=== PATIENT | female | born 1970 | race Caucasian/White ===

== ENCOUNTER → 2017-01-29 | Outpatient (CLI) | payer MEDICAID ==
--- NOTE | 2017-01-29 09:12 | WWHP ---
[facility] - HISTORY AND PHYSICAL CHIEF COMPLAINT: The patient is here for her routine gynecologic exam. HPI: This is a 46-year-old, G2, P2, with a LMP of 01/19/2017. The patient states it has been about 2 years since her last pelvic exam. Her partner is status post vasectomy. She states her periods were regular every month, lasting 5 days with average flow up until 1 year ago. She states they since have been about every 25 days and can vary in flow. She can go from heavy to light to heavy again. She has always had fairly crampy periods and this has not changed. On her heavy days, she can have to change her protection every 1-1/2 to 2 hours. She did have 1 episode where she did soak through her protection while at work. She has been experiencing some hot flashes, especially at night, and this is been during the last year. She notices this more about 2 days before the period starts. PAST MEDICAL HISTORY: Unremarkable. MEDICATIONS: None. ALLERGIES: No known drug allergies. PAST SURGICAL HISTORY: Ureteral reflux surgery in 1974, umbilical hernia repair in 2003. PAST OB HISTORY: Two vaginal deliveries. 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 S SOCIAL HISTORY: She denies tobacco and drug use and has about 5 alcohol containing drinks per week. She is and has been with her boyfriend for 3 years and lives with him. 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 FAMILY HISTORY: Mother had lung cancer, breast cancer, and adrenal cancer. Paternal grandmother had colon cancer. Father had pulmonary hypertension. Several aunts and uncles have had heart disease. REVIEW OF SYSTEMS: She believes that she has gained about 10 pounds over the last year. She denies respiratory, cardiac or GI problems. PHYSICAL EXAM: Blood pressure 120/80, height 5 feet 5 inches, weight 188 pounds, temperature 97.0, pulse 88, BMI 31. This is a well-developed, well-nourished, white female, who is alert and oriented x3, in no acute distress. HEENT: Within normal limits. NECK: Supple without mass or thyromegaly. CHEST AND LUNGS: Clear to auscultation. HEART: Regular rate and rhythm. BREASTS: Without mass or discharge. Axillary exam is negative for adenopathy. BACK: Negative for CVA tenderness. ABDOMEN: Soft, nontender, without palpable masses. PELVIC EXAM: Normal external genitalia. Cervix appears multiparous with a benign- appearing nabothian cyst. There is no unusual discharge. There is no cervical motion tenderness. The uterus is mid position, nongravid size and nontender. There are no palpable adnexal masses or tenderness. RECTAL: Exam is negative for mass or tenderness and is negative for occult blood. EXTREMITIES: Nontender. IMPRESSION: 1. A 46-year-old female with normal gynecologic exam. 2. Mild hypermenorrhea. PLAN: 1. Pap smear was performed. 2. Self-breast examination was discussed. 3. Mammogram was done on 02/26/2016 and was benign. An order slip was given to the patient for screening mammogram in 1 month. 4. Patient will keep a menstrual calendar. 5. We have this discussed various options for her hypermenorrhea including meclofenamate sodium, oral contraception, and endometrial ablation. We will have a trial of meclofenamate sodium 100 mg t.i.d. p.r.n. for heavy menstrual flow up to 6 days per cycle. 6. If she is not noticing significant improvement we can discuss other options. 7. We have discussed weight control. I have stressed the importance of good nutrition, adequate fiber and regular exercise. 8. She will return in 1 year and p.r.n. MMPOWERL / MARKN: [id number] /
== END ==
LOC: WWCWWP 07:43
PROVIDERS: ATTEND Obstetrics & Gynecology
DX: Z01.419 Encounter for gynecological examination (general) (routine) without abnormal findings (principal)

== ENCOUNTER → 2017-03-14 | Outpatient (CLI) | payer MEDICAID ==
--- NOTE | 2017-03-18 09:43 | MM ---
Reason for exam: screening (asymptomatic). Last mammogram was performed 1 year and 1 month ago. History: Family history of breast cancer in mother at age 63 and breast cancer in maternal grandmother at age 58. Took hormonal contraceptives for 2 years beginning at age 25. Physical Findings: A clinical breast exam by your physician is recommended on an annual basis and results should be correlated with mammographic findings. MG 3D Screening Mammo W/Cad Bilateral CC and MLO view(s) were taken. Prior study comparison: February 26, 2016, bilateral MG 3d screening mammo w/cad. January 18, 2015, left breast MG 3d work up w/cad LT. The breast tissue is extremely dense which could obscure a lesion on mammography. There is no discrete abnormality. No significant changes when compared with prior studies. ASSESSMENT: Negative, BI-RAD 1 RECOMMENDATION: Routine screening mammogram of both breasts in 1 year.
== END | disposition home or self-care (01) ==
LOC: RADMAMWWP 12:31
PROVIDERS: ATTEND Obstetrics & Gynecology
DX: Z12.31 Encounter for screening mammogram for malignant neoplasm of breast (principal)
CPT/HCPCS: 77063; G0202

== ENCOUNTER → 2018-02-10 | Outpatient (CLI) | payer MEDICAID ==
[2018-02-10 11:45] VITALS: BP 128/69; PULSE 88; TEMP 96.5; BMI 30.4
--- NOTE | 2018-02-10 12:16 | P.HPOB ---
History of Present Illness H&P Date: 02/10/18 Chief Complaint: The patient is here for her routine gynecologic exam. This is a 47-year-old with an LMP of 02/02/2018. The patient's 's status post vasectomy. She did have a history of mild hypermenorrhea. She states her menses have been slightly variable in frequency, about every 24 to 28 days. They are now only lasting about 2 days and are not as heavy. She has been experiencing occasional hot flashes during the past year which are not severe. She did not use the meclofenamate sodium as prescribed last year for heavy menses. She is without gynecologic complaints. Review of Systems The patient has lost 5 pounds over the last year. She denies respiratory, cardiac, or G.I. problems. 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 History of Any Multi-Drug Resistant Organisms: None Reported Past Surgical History: Hernia Repair (Umbilical) Additional Past Surgical History / Comment(s): Ureteral reflux surgery of 1974. Past Psychological History: No Psychological Hx Reported Smoking Status: Never smoker Past Alcohol Use History: Occasional (3 or 4 per week) Past Drug Use History: None Reported - Past Family History Mother Family Medical History: Cancer (Lung, breast and adrenal cancer.) Additional Family Medical History / Comment(s): Gilbert's disease. Father Additional Family Medical History / Comment(s): Pulmonary hypertension. Paternal grandmother had colon cancer. Aunts and uncles have had heart disease. Medications and Allergies Home Medications Medication Instructions Recorded Confirmed Type No Known Home Medications 02/10/18 02/10/18 History Allergies Allergy/AdvReac Type Severity Reaction Status Date / Time No Known Allergies Allergy Unverified 02/10/18 11:45 Exam Vital Signs Temp Pulse BP 02/10/18 11:40 96.5 F L 88 128/69 Intake and Output 02/09/18 02/10/18 02/10/18 22:59 06:59 14:59 Other: Weight 83.007 kg Height 5'5", weight 183 pounds, BMI 30.5. This is a well-developed well-nourished white female who is alert and oriented times 3 in no acute distress. HEENT: Within normal limits. NECK: Supple without mass or thyromegaly. CHEST AND LUNGS: Clear to auscultation. HEART: Regular rate and rhythm. BREASTS: Are without mass or discharge. AXILLARY EXAM: Negative for adenopathy. BACK: Negative for CVA tenderness. ABDOMEN: Soft, nontender, without palpable masses. PELVIC EXAM: Normal external genitalia. Cervix and vagina appear normal. There is no unusual discharge. There is no evidence of prolapse. The uterus is midposition, nongravid size and nontender. There are no palpable adnexal masses or tenderness. RECTAL EXAM: negative for mass or tenderness and is negative for occult blood. EXTREMITIES: Nontender. IMPRESSION: 1. 47-year-old female whose is status post vasectomy, with normal gynecologic exam. 2. Improved hypermenorrhea without medication. PLAN: 1. Pap smear was deferred since she had a negative one last year. 2. Self breast awareness was discussed with the patient. 3. Screening mammogram will be due after 03/14/2018. The orders that was given to the patient for this. 4. Osteoporosis prevention was discussed. I have stressed the importance of adequate calcium, vitamin D and regular exercise. Recommended amounts of calcium and vitamin D were also discussed. 5. She will keep a menstrual calendar and call if menstrual problems. 6. She will return in one year.
== END | disposition home or self-care (01) ==
LOC: WWCWWP 11:17
PROVIDERS: ATTEND Obstetrics & Gynecology
DX: Z53.9 Procedure and treatment not carried out, unspecified reason (principal)

== ENCOUNTER → 2018-04-08 | Outpatient (CLI) | payer MEDICAID ==
--- NOTE | 2018-04-12 13:38 | MM ---
Reason for exam: screening (asymptomatic). Last mammogram was performed 1 year and 1 month ago. History: Family history of breast cancer in mother at age 63 and breast cancer in maternal grandmother at age 58. Took hormonal contraceptives for 2 years beginning at age 25. MG 3D Screening Mammo W/Cad Bilateral CC and MLO view(s) were taken. Prior study comparison: March 14, 2017, bilateral MG 3d screening mammo w/cad. February 26, 2016, bilateral MG 3d screening mammo w/cad. The breast tissue is heterogeneously dense. This may lower the sensitivity of mammography. There are benign-appearing left breast punctate calcifications. No suspicious abnormality. No significant changes when compared with prior studies. ASSESSMENT: Benign, BI-RAD 2 RECOMMENDATION: Routine screening mammogram of both breasts in 1 year.
== END | disposition home or self-care (01) ==
LOC: RADMAMWWP 10:07
PROVIDERS: ATTEND Obstetrics & Gynecology
DX: Z12.31 Encounter for screening mammogram for malignant neoplasm of breast (principal)
CPT/HCPCS: 77063; 77067

== ENCOUNTER → 2019-04-27 | Outpatient (CLI) | payer MEDICAID ==
[2019-04-27 15:50] VITALS: BP 124/85; PULSE 82; RESP 18; TEMP 97.8
--- NOTE | 2019-04-27 16:31 | P.HPOB ---
History of Present Illness H&P Date: 04/27/19 Chief Complaint: The patient is here for her routine gynecologic exam. This is a 48-year-old with an LMP of 04/15/2019. Patient states her menstrual periods are about every 25-30 days and can vary flow. She does experience occasional hot flashes especially the week before her menstrual flow. Her partner is status post vasectomy. Review of Systems The patient's weight has been stable over the last year. She denies respiratory, cardiac, or G.I. problems. She has been experiencing some anxiety but has not required any medications at this time. 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 History of Any Multi-Drug Resistant Organisms: None Reported Past Surgical History: Hernia Repair Additional Past Surgical History / Comment(s): Ureteral reflux surgery of 1974. Past Psychological History: Anxiety Additional Psychological History / Comment(s): Anxiety not requiring medication at this time. Smoking Status: Never smoker Past Alcohol Use History: Occasional (3 per week) Past Drug Use History: None Reported Additional History: She is and has been with her boyfriend since 2013 and lives with him. She works at [employer] in [employer] at [facility]. - Past Family History Mother Family Medical History: Cancer Additional Family Medical History / Comment(s): Gilbert's disease. Recurrent lung cancer. Also history of breast and adrenal colon cancer. Father Additional Family Medical History / Comment(s): Pulmonary hypertension. Paternal grandmother had colon cancer. Aunts and uncles have had heart disease. Medications and Allergies Home Medications Medication Instructions Recorded Confirmed Type No Known Home Medications 02/10/18 04/27/19 History Allergies Allergy/AdvReac Type Severity Reaction Status Date / Time No Known Allergies Allergy Unverified 04/27/19 15:50 Exam Vital Signs Temp Pulse Resp BP Pulse Ox 04/27/19 15:47 97.8 F 82 18 124/85 98 Intake and Output 04/27/19 04/27/19 04/27/19 06:59 14:59 22:59 Other: Weight 82.554 kg Height 5 feet 5.5 inches, weight 182 pounds, BMI 29.8. This is a well-developed well-nourished white female who is alert and oriented times 3 in no acute distress. HEENT: Within normal limits. NECK: Supple without mass or thyromegaly. CHEST AND LUNGS: Clear to auscultation. HEART: Regular rate and rhythm. BREASTS: Are without mass or discharge. There is a small mole measuring approximately 5 mm on the left area of the. The patient states this has been there for many years and has not changed. AXILLARY EXAM: Negative for adenopathy. BACK: Negative for CVA tenderness. ABDOMEN: Soft, nontender, without palpable masses. PELVIC EXAM: Normal external genitalia. Cervix and vagina appear normal. There is no unusual discharge. There is no evidence of prolapse. The uterus is midposition, nongravid size and nontender. There are no palpable adnexal masses or tenderness. RECTAL EXAM: negative for mass or tenderness and is negative for occult blood. EXTREMITIES: Nontender. IMPRESSION: 1. 48-year-old female with normal gynecologic exam with slight menstrual changes and occasional vasomotor symptoms. Probable early perimenopause. 2. The patient's partner is status post vasectomy. PLAN: 1. Pap smear was performed. 2. Self breast awareness was discussed with the patient. 3. Screening mammogram is due and the order slip was given to the patient for this. 4. Patient will keep a menstrual calendar on her phone and call she's having menstrual problems. 5. She was advised to return in one year for her annual well woman exam.
--- NOTE | 2019-05-04 17:42 | P.PN ---
Progress Note - Text Progress Note Date: 05/04/19 OUTPATIENT FOLLOW-UP NOTE TEST(S)/RESULTS: test results from 04/27/2019 include negative Pap smear and benign mammogram. METHOD OF NOTIFICATION: a message with these results was left on the patient's voice mail. PATIENT COMMENTS: DIAGNOSIS: negative Pap smear and benign mammogram. DISCUSSION: A shift in the vaginal princess was noted on the Pap smear suggestive of bacterial vaginosis. The patient was instructed to contact me at the [facility] and at that time I will ask her she's having any bacterial vaginosis symptoms and possibly treat. PLAN: the patient is to return in one year for her annual well woman exam.
--- NOTE | 2019-05-05 14:20 | P.PN ---
Progress Note - Text Progress Note Date: 05/05/19 The patient was called regarding the Pap smear showing a shift in the vaginal princess suggestive of bacterial vaginosis. She states she occasionally notices a slight odor at the end of her menstrual period and this is not new. She otherwise denies any symptoms of bacterial vaginosis. She was instructed to call if she develops unusual discharge or unusual vaginal odor.
== END | disposition home or self-care (01) ==
LOC: WWCWWP 15:31
PROVIDERS: ATTEND Obstetrics & Gynecology
DX: Z53.9 Procedure and treatment not carried out, unspecified reason (principal)

== ENCOUNTER → 2019-04-29 | Outpatient (CLI) | payer MEDICAID ==
--- NOTE | 2019-04-30 11:59 | MM ---
Reason for exam: screening (asymptomatic). Last mammogram was performed 1 year and 1 month ago. History: Family history of breast cancer in mother at age 63 and breast cancer in maternal grandmother at age 58. Took hormonal contraceptives for 2 years beginning at age 25. Physical Findings: A clinical breast exam by your physician is recommended on an annual basis and results should be correlated with mammographic findings. MG 3D Screening Mammo W/Cad Bilateral CC and MLO view(s) were taken. Prior study comparison: April 08, 2018, bilateral MG 3d screening mammo w/cad. March 14, 2017, bilateral MG 3d screening mammo w/cad. The breast tissue is heterogeneously dense. This may lower the sensitivity of mammography. Benign appearing few calcifications in the left breast. No suspicious abnormality. No significant changes when compared with prior studies. ASSESSMENT: Benign, BI-RAD 2 RECOMMENDATION: Routine screening mammogram of both breasts in 1 year.
== END | disposition home or self-care (01) ==
LOC: RADMAMWWP 11:32
PROVIDERS: ATTEND Obstetrics & Gynecology
DX: Z12.31 Encounter for screening mammogram for malignant neoplasm of breast (principal)
CPT/HCPCS: 77063; 77067

== ENCOUNTER → 2020-05-03 | Outpatient (CLI) | payer MEDICAID ==
[2020-05-03 10:23] VITALS: BP 107/74; PULSE 81; RESP 18; TEMP 98
--- NOTE | 2020-05-03 11:06 | P.HPOB ---
History of Present Illness H&P Date: 05/03/20 Chief Complaint: The patient is here for her routine gynecologic exam. This is a 49-year-old with an LMP of 04/23/2020. Her partner is status post vasectomy. Patient states her menstrual periods are about every 25-30 days. She does experience occasional hot flashes prior to her menstrual periods. She is without complaints. She is requesting screening blood tests since she has not been to her primary care physician for several years. Review of Systems The patient's weight has been stable over the last year. She denies respiratory, cardiac, or G.I. problems. Musculoskeletal: She has been experiencing some right shoulder problems and is seeing an orthopedic surgeon for this. This has improved with stretching exercises. Psych: She has been experiencing some mild anxiety since her mother's in 2019. She does not require medication for this. Past Medical History Past Medical History: No Reported History Additional Past Medical History / Comment(s): Right shoulder problems. 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 History of Any Multi-Drug Resistant Organisms: None Reported Past Surgical History: Hernia Repair Additional Past Surgical History / Comment(s): Ureteral reflux surgery of 1974. Past Psychological History: Anxiety Additional Psychological History / Comment(s): Anxiety not requiring medication at this time. Smoking Status: Never smoker Past Alcohol Use History: Occasional (3 per week) Past Drug Use History: None Reported Additional History: She is and has been with her boyfriend since 2013 and lives with him. She works at [employer] in [employer] at [employer]. - Past Family History Mother Family Medical History: Cancer Additional Family Medical History / Comment(s): Gilbert's disease. from Recurrent lung cancer. Also history of breast and adrenal colon cancer. Father Additional Family Medical History / Comment(s): Pulmonary hypertension. Paternal grandmother had colon cancer. Aunts and uncles have had heart disease. Medications and Allergies Home Medications Medication Instructions Recorded Confirmed Type Ascorbic Acid [Vitamin C] 500 mg PO DAILY 05/03/20 05/03/20 History Ibuprofen [Motrin] 600 mg PO Q8HR PRN 05/03/20 05/03/20 History Allergies Allergy/AdvReac Type Severity Reaction Status Date / Time No Known Allergies Allergy Unverified 02/17/21 10:16 Exam Vital Signs Temp Pulse Resp BP Pulse Ox 05/03/20 10:20 98.0 F 81 18 107/74 100 Intake and Output 05/02/20 05/03/20 05/03/20 22:59 06:59 14:59 Other: Weight 82.1 kg Height 5 feet 5-1/2 inches, weight 181 pounds, BMI 29.7. This is a well-developed well-nourished white female who is alert and oriented times 3 in no acute distress. HEENT: Within normal limits. NECK: Supple without mass or thyromegaly. CHEST AND LUNGS: Clear to auscultation. HEART: Regular rate and rhythm. BREASTS: Are without mass or discharge. AXILLARY EXAM: Negative for adenopathy. BACK: Negative for CVA tenderness. ABDOMEN: Soft, nontender, without palpable masses. PELVIC EXAM: Normal external genitalia. Cervix and vagina appear normal. There is no unusual discharge. There is no evidence of prolapse. The uterus is midposition, nongravid size and nontender. There are no palpable adnexal masses or tenderness. RECTAL EXAM: Rectal exam is negative for mass or tenderness and is negative for occult blood. EXTREMITIES: Nontender. IMPRESSION: 1. 49-year-old perimenopausal female whose partner is status post vasectomy with normal gynecologic exam. PLAN: 1. Pap smear was deferred since she had a negative Pap smear on 05/05/2019. 2. Self breast awareness was discussed with the patient. 3. Screening mammogram will be due in the near future and the order slip was given to the patient for this. 4. Osteoporosis prevention was discussed. I have stressed the importance of adequate calcium, vitamin D and regular exercise. Recommended amounts of calcium and vitamin D were also discussed. 5. I have recommended that she look into having a screening colonoscopy at the age of 50. 6. She is requesting screening blood work since she has not been to her PCP in several years. Blood work will include comprehensive chem panel, CBC, and fasting lipid profile. The order slip was given to the patient for this. She understands that if there are abnormal findings with the blood work, I will recommend that she reestablish with her primary care physician for follow-up. 7. She was advised to return in one year for her annual well woman exam.
--- NOTE | 2020-05-09 15:52 | P.PN ---
Progress Note - Text Progress Note Date: 05/09/20 OUTPATIENT FOLLOW-UP NOTE TEST(S)/RESULTS: Blood test results done on 05/08/2020 include normal comprehensive chem panel, fasting lipid profile with total cholesterol of 201, normal HDL, LDL, triglycerides and cholesterol/HDL ratio. CBC showed slightly elevated MCV and MCH. The rest was normal. METHOD OF NOTIFICATION: These results were reviewed with the patient in person. PATIENT COMMENTS: He states she was once told she probably should take a vitamin B12 supplement. She has not been doing this. DIAGNOSIS: Mildly elevated total cholesterol with good lipid profile breakdown. Mildly increased MCV and MCH with normal hemoglobin and RBC count. DISCUSSION: I have recommended that she establish with a primary care physician and she can do future blood screening tests with that person. I have recommended that she take a vitamin B12 supplement or a multivitamin with vitamin B12. She can then repeat the CBC at her convenience and if still elevated, she can follow up with a primary care physician. PLAN: As above.
== END | disposition home or self-care (01) ==
LOC: WWCWWP 09:58
PROVIDERS: ATTEND Obstetrics & Gynecology
DX: Z53.9 Procedure and treatment not carried out, unspecified reason (principal)

== ENCOUNTER → 2020-05-08 | Outpatient (CLI) | payer MEDICAID ==
[2020-05-08 15:14] LABS: HCT 42.3 % (37.2-46.3); HGB 13.7 g/dL (12.0-15.0); MCH 32.2 pg (27.0-32.0); MCHC 32.4 g/dL (32.0-37.0); MCV 99.3 fL (80.0-97.0); Mean Platelet Volume 11.1 fL (9.5-12.2); Platelet Count 242 X 10*3/uL (140-440); RBC 4.26 X 10*6/uL (4.10-5.20); RDW 12.8 % (11.5-14.5); WBC 4.98 X 10*3/uL (4.50-10.00)
[2020-05-08 15:39] LABS: African American GFR (CKD) 100.3 (60.0-200.0); Albumin 4.1 g/dL (3.80-4.90); Albumin/Globulin Ratio 1.64 (1.60-3.17); Anion Gap 7.3 mmol/L (4.00-12.00); BUN/Creat Ratio 17.5 Ratio (12.00-20.00); Carbon Dioxide 25.7 mmol/L (21.6-31.8); Chol/HDL Ratio 3.41; Globulin 2.5 g/dL (1.6-3.3); Non-African American GFR(CKD) 86.6 (60.0-200.0); Potassium 4.1 mmol/L (3.5-5.5); Total Bilirubin 0.7 mg/dL (0.3-1.2); Total Protein 6.6 g/dL (6.2-8.2)
== END | disposition home or self-care (01) ==
LOC: LABWHC1 09:34
PROVIDERS: ATTEND Obstetrics & Gynecology
DX: Z00.00 Encounter for general adult medical examination without abnormal findings (principal)
CPT/HCPCS: 36415; 80053; 80061; 85027

== ENCOUNTER → 2020-06-02 | Outpatient (CLI) | payer MEDICAID ==
--- NOTE | 2020-06-06 10:42 | MM ---
Reason for exam: screening (asymptomatic). Last mammogram was performed 1 year and 1 month ago. History: Family history of breast cancer in mother at age 63 and breast cancer in maternal grandmother at age 58. Took hormonal contraceptives for 2 years beginning at age 25. Physical Findings: A clinical breast exam by your physician is recommended on an annual basis and results should be correlated with mammographic findings. MG 3D Screening Mammo W/Cad Bilateral CC and MLO view(s) were taken. Prior study comparison: April 29, 2019, bilateral MG 3d screening mammo w/cad. April 08, 2018, bilateral MG 3d screening mammo w/cad. The breast tissue is heterogeneously dense. This may lower the sensitivity of mammography. No significant changes when compared with prior studies. ASSESSMENT: Benign, BI-RAD 2 RECOMMENDATION: Routine screening mammogram of both breasts in 1 year.
== END | disposition home or self-care (01) ==
LOC: RADMAMWWP 13:19
PROVIDERS: ATTEND Obstetrics & Gynecology
DX: Z12.31 Encounter for screening mammogram for malignant neoplasm of breast (principal); Z80.3 Family history of malignant neoplasm of breast
CPT/HCPCS: 77063; 77067

== ENCOUNTER → 2021-07-10 | Outpatient (CLI) | payer MEDICAID ==
[2021-07-10 14:39] VITALS: BP 123/79; PULSE 89; RESP 17; TEMP 97.9
--- NOTE | 2021-07-10 15:27 | P.HPOB ---
History of Present Illness H&P Date: 07/10/21 Chief Complaint: The patient is here for her routine gynecologic exam. This is a 51-year-old with an LMP of 06/24/2021. Her partner is status post vasectomy. Menstrual periods are about every 25-30 days. She does have some days with heavier flow, but she states this is tolerable. She is without gynecologic complaints. Review of Systems The patient has gained 7 pounds over the last year. She denies respiratory or cardiac problems. GI: She does have times when she has more intestinal gas. Past Medical History Past Medical History: No Reported History Additional Past Medical History / Comment(s): Right shoulder problems. 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 History of Any Multi-Drug Resistant Organisms: None Reported Past Surgical History: Hernia Repair Additional Past Surgical History / Comment(s): Ureteral reflux surgery of 1974. Past Psychological History: Anxiety Additional Psychological History / Comment(s): Anxiety not requiring medication at this time. Smoking Status: Never smoker Past Alcohol Use History: Occasional (5 per week) Past Drug Use History: None Reported Additional History: She is and has been with her boyfriend since 2013. They live together. She works at [employer] in [place] at [facility] [employer]. - Past Family History Mother Family Medical History: Cancer Additional Family Medical History / Comment(s): Gilbert's disease. from Recurrent lung cancer. Also history of breast and adrenal colon cancer. Father Additional Family Medical History / Comment(s): Pulmonary hypertension. Paternal grandmother had colon cancer. Aunts and uncles have had heart disease. Medications and Allergies Home Medications Medication Instructions Recorded Confirmed Type Ascorbic Acid [Vitamin C] 500 mg PO DAILY 05/03/20 07/10/21 History Ibuprofen [Motrin] 600 mg PO Q8HR PRN 05/03/20 07/10/21 History Cholecalciferol [Vitamin D3 (25 25 mcg PO DAILY 07/10/21 07/10/21 History Mcg = 1000 Iu)] Cyanocobalamin (Vitamin B-12) 1,000 mcg PO DAILY 07/10/21 07/10/21 History [Vitamin B-12] Allergies Allergy/AdvReac Type Severity Reaction Status Date / Time No Known Allergies Allergy Unverified 07/10/21 14:33 Exam Vital Signs Temp Pulse Resp BP Pulse Ox 07/10/21 14:36 97.9 F 89 17 123/79 98 Intake and Output 07/10/21 07/10/21 07/10/21 06:59 14:59 22:59 Other: Weight 85.275 kg Height 5 feet 5 inches, weight 188 pounds, BMI 31.3. This is a well-developed well-nourished white female who is alert and oriented times 3 in no acute distress. HEENT: Within normal limits. NECK: Supple without mass or thyromegaly. CHEST AND LUNGS: Clear to auscultation. HEART: Regular rate and rhythm. BREASTS: Are without mass or discharge. AXILLARY EXAM: Negative for adenopathy. BACK: Negative for CVA tenderness. ABDOMEN: Soft, nontender, without palpable masses. PELVIC EXAM: Normal external genitalia. Cervix and vagina appear normal. There is no unusual discharge. There is no evidence of prolapse. The uterus is midposition, multiparous nongravid size and nontender. There are no palpable adnexal masses or tenderness. RECTAL EXAM: Rectovaginal exam is negative for mass or tenderness and is negative for occult blood. EXTREMITIES: Nontender. IMPRESSION: 1. 51-year-old premenopausal female whose partner is status post vasectomy, with normal gynecologic exam. PLAN: 1. Pap smear cotest was performed. 2. Self breast awareness was discussed with the patient. We have also discussed symptoms associated with inflammatory breast cancer. 3. Screening mammogram is due. The order slip was given to the patient for this. 4. Osteoporosis prevention was discussed. 5. Colorectal cancer screening was discussed. I have recommended screening colonoscopy. I have recommended she look into reestablishing with a primary care physician or contacting a general surgeon for the colonoscopy. 6. Since she has not seen a primary care physician for several years, she is requesting screening lab work. An order slip for a comprehensive chem panel, CBC, and fasting lipid profile was given to the patient. 7. She has received her Covid vaccination series. 8. She was advised to return in one year for her annual well woman exam.
== END ==
LOC: WWCWWP 13:36
PROVIDERS: ATTEND Obstetrics & Gynecology
DX: Z01.419 Encounter for gynecological examination (general) (routine) without abnormal findings (principal); F41.9 Anxiety disorder, unspecified

== ENCOUNTER → 2021-08-23 | Outpatient (CLI) | payer MEDICAID ==
[2021-08-23 14:57] LABS: HCT 43.9 % (37.2-46.3); HGB 14.2 g/dL (12.0-15.0); MCH 32.1 pg (27.0-32.0); MCHC 32.3 g/dL (32.0-37.0); MCV 99.3 fL (80.0-97.0); Mean Platelet Volume 11.2 fL (9.5-12.2); NRBC Per 100 WBC 0 /100 WBCS (0.0-0.0); Platelet Count 266 X 10*3/uL (140-440); RBC 4.42 X 10*6/uL (4.10-5.20); RDW 12.7 % (11.5-14.5); WBC 5.47 X 10*3/uL (4.50-10.00)
[2021-08-23 16:31] LABS: ALT 11 U/L (8-44); AST 13 U/L (13-35); African American GFR (CKD) 98.9 (60.0-200.0); Albumin 4.7 g/dL (3.8-4.9); Albumin/Globulin Ratio 2.04 (1.60-3.17); Alkaline Phosphatase 73 U/L (41-126); Blood Urea Nitrogen 12.4 mg/dL (9.0-27.0); Calcium 9.7 mg/dL (8.7-10.3); Carbon Dioxide 26.1 mmol/L (20.0-27.5); Chloride 102 mmol/L (96-109); Chol/HDL Ratio 3.23 Ratio; Globulin 2.3 g/dL (1.6-3.3); Glucose 100 mg/dL (70-110); LDL Cholesterol,Calculated 131.6 mg/dL (0.0-131.0); Non-African American GFR(CKD) 85.4 (60.0-200.0); Potassium 4.7 mmol/L (3.5-5.5); Sodium 139 mmol/L (135-145); VLDL Calculation 12.06 mg/dL (5.00-40.00)
== END | disposition home or self-care (01) ==
LOC: LABWHC1 09:47
PROVIDERS: ATTEND Obstetrics & Gynecology
DX: Z00.00 Encounter for general adult medical examination without abnormal findings (principal); Z13.9 Encounter for screening, unspecified
CPT/HCPCS: 36415; 80053; 80061; 85027

== ENCOUNTER → 2021-08-23 | Outpatient (CLI) | payer MEDICAID ==
--- NOTE | 2021-08-25 14:53 | MM ---
Reason for Exam: Screening (asymptomatic). Last mammogram was performed 1 year(s) and 3 month(s) ago. Patient History: Menarche at age 12. First Full-Term at age 25. Hormonal Contraceptives for 2 years from age 25 until age 27. Maternal grandmother had breast cancer, age 58. Mother had breast cancer, age 63. Last menstrual period: 08/09/2021 Risk Values: Nataly 5 year model risk: 2.0%. NCI Lifetime model risk: 16.6%. Prior Study Comparison: 04/08/2018 Bilateral Screening Mammogram, [facility]. 04/29/2019 Bilateral Screening Mammogram, [facility]. 06/02/2020 Bilateral Screening Mammogram, [facility]. Tissue Density: The breast tissue is heterogeneously dense. This may lower the sensitivity of mammography. Findings: Analyzed By CAD. Areas of symmetric density are unchanged from prior exams. For example, lateral posterior right cc view and central left MLO view at a middle to posterior depth. No significant change from prior exams. Overall Assessment: Benign, BI-RAD 2 Management: Screening Mammogram of both breasts in 1 year. A clinical breast exam by your physician is recommended on an annual basis and results should be correlated with mammographic findings. Also, the patient should continue monthly self breast exams. Electronically signed and approved by: Shorty Salinas M.D. Radiologist
== END | disposition home or self-care (01) ==
LOC: RADMAMWWP 09:57
PROVIDERS: ATTEND Obstetrics & Gynecology
DX: Z12.31 Encounter for screening mammogram for malignant neoplasm of breast (principal)
CPT/HCPCS: 77063; 77067

== ENCOUNTER → 2022-08-20 | Outpatient (CLI) | payer MEDICAID ==
[2022-08-20 14:35] VITALS: BP 126/86; PULSE 80; RESP 17; TEMP 98.1
--- NOTE | 2022-08-20 15:23 | P.HPOB ---
History of Present Illness H&P Date: 08/20/22 Chief Complaint: The patient is here for her routine gynecologic exam. This is a 52-year-old with an LMP of 06/24/2021. Her partner is status post vasectomy. Menstrual periods have been fairly regular about every 25 days until May of this year. She went nearly 60 days without a period. She has been noticing some occasional hot flashes which are not very bothersome. The flow has been fairly normal when she does have menstrual periods. She is otherwise without gynecologic complaints. Review of Systems The patient's weight has been stable over the last year. She denies respiratory, cardiac, or G.I. problems. Past Medical History Past Medical History: No Reported History Additional Past Medical History / Comment(s): Right shoulder problems. 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 History of Any Multi-Drug Resistant Organisms: None Reported Past Surgical History: Hernia Repair Additional Past Surgical History / Comment(s): Ureteral reflux surgery of 1974. Past Psychological History: Anxiety Additional Psychological History / Comment(s): Anxiety not requiring medication at this time. Smoking Status: Never smoker Past Alcohol Use History: Occasional (3 per week.) Past Drug Use History: None Reported Additional History: She is and has been with her boyfriend since 2013. They live together. 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 - Past Family History Mother Family Medical History: Cancer Additional Family Medical History / Comment(s): Gilbert's disease. from Recurrent lung cancer. Also history of breast and adrenal colon cancer. Father Additional Family Medical History / Comment(s): Pulmonary hypertension. Paternal grandmother had colon cancer. Aunts and uncles have had heart disease. Medications and Allergies Home Medications Medication Instructions Recorded Confirmed Type Ascorbic Acid [Vitamin C] 500 mg PO DAILY 05/03/20 08/20/22 History Ibuprofen [Motrin] 600 mg PO Q8HR PRN 05/03/20 08/20/22 History Cholecalciferol [Vitamin D3 (25 25 mcg PO DAILY 07/10/21 08/20/22 History Mcg = 1000 Iu)] Cyanocobalamin (Vitamin B-12) 1,000 mcg PO DAILY 07/10/21 08/20/22 History [Vitamin B-12] Allergies Allergy/AdvReac Type Severity Reaction Status Date / Time No Known Allergies Allergy Unverified 08/20/22 14:30 Exam Vital Signs Temp Pulse Resp BP Pulse Ox 08/20/22 14:31 98.1 F 80 17 126/86 96 Intake and Output 08/20/22 08/20/22 08/20/22 06:59 14:59 22:59 Other: Weight 84.822 kg Height 5 feet 5 inches, weight 187 pounds, BMI 31.1. This is a well-developed well-nourished white female who is alert and oriented times 3 in no acute distress. HEENT: Within normal limits. NECK: Supple without mass or thyromegaly. CHEST AND LUNGS: Clear to auscultation. HEART: Regular rate and rhythm. BREASTS: Are without mass or discharge. AXILLARY EXAM: Negative for adenopathy. BACK: Negative for CVA tenderness. ABDOMEN: Soft, nontender, without palpable masses. PELVIC EXAM: Normal external genitalia. Cervix and vagina appear normal. There is no unusual discharge. There is no evidence of prolapse. The uterus is midposition, nongravid size and nontender. There are no palpable adnexal masses or tenderness. RECTAL EXAM: Rectovaginal exam is negative for mass or tenderness and is negative for occult blood. EXTREMITIES: Nontender. IMPRESSION: 1. 52-year-old perimenopausal female with slight menstrual irregularity and mild vasomotor symptoms, with normal gynecologic exam. 2. Her partner is status post vasectomy. PLAN: 1. Pap smear was deferred since she had a negative Pap smear cotest on 07/10/2021. 2. Self breast awareness was discussed with the patient. We have also discussed symptoms associated with inflammatory breast cancer. 3. Screening mammogram will be due next week. The order slip was given to the patient for this. 4. Osteoporosis prevention was discussed. I have stressed the importance of adequate calcium, vitamin D and regular exercise. Recommended amounts of calcium and vitamin D were also discussed. 5. Screening colonoscopy was recommended. She states she plans on establishing with a PCP in the near future. Screening blood work and colorectal cancer screening will be done through her PCP. 6. She was advised to return in one year for her annual well woman exam.
== END ==
LOC: WWCWWP 14:26
PROVIDERS: ATTEND Obstetrics & Gynecology
DX: Z80.0 Family history of malignant neoplasm of digestive organs (principal); Z99.89 Dependence on other enabling machines and devices; F41.9 Anxiety disorder, unspecified

== ENCOUNTER → 2022-09-19 | Outpatient (CLI) | payer MEDICAID ==
--- NOTE | 2022-09-19 12:02 | MM ---
Reason for Exam: Screening (asymptomatic). Last mammogram was performed 1 year(s) and 1 month(s) ago. Patient History: Menarche at age 12. First Full-Term at age 25. Hormonal Contraceptives for 2 years from age 25 until age 27. Maternal grandmother had breast cancer, age 58. Mother had breast cancer, age 63. Risk Values: Nataly 5 year model risk: 2.1%. NCI Lifetime model risk: 16.3%. Prior Study Comparison: 04/29/2019 Bilateral Screening Mammogram, [facility]. 06/02/2020 Bilateral Screening Mammogram, [facility]. 08/23/2021 Bilateral MG 3D screening mammo w/cad, [facility]. Tissue Density: The breast tissue is heterogeneously dense. This may lower the sensitivity of mammography. Findings: Analyzed By CAD. There is no suspicious group of microcalcifications or new suspicious mass in either breast. Overall Assessment: Negative, BI-RAD 1 Management: Screening Mammogram of both breasts in [address] [facility] will attempt to contact patient to return for supplemental views and ultrasound if indicated. Patient should continue monthly self-breast exams. A clinical breast exam by your physician is recommended on an annual basis. This exam should not preclude additional follow-up of suspicious palpable abnormalities. Note on Nataly scores and lifetime risk: 1. A Nataly score greater than 3% is considered moderate risk. If this is the case, consider specialist referral to assess eligibility for a risk reducing agent. 2. If overall lifetime risk for the development of breast cancer is 20% or higher, the patient may qualify for future screening with alternating mammogram and breast MRI. Electronically signed and approved by: Shalom Lerma DO
== END | disposition home or self-care (01) ==
LOC: RADMAMWWP 10:47
PROVIDERS: ATTEND Obstetrics & Gynecology
DX: Z12.31 Encounter for screening mammogram for malignant neoplasm of breast (principal); Z80.3 Family history of malignant neoplasm of breast
CPT/HCPCS: 77063; 77067

== ENCOUNTER → 2023-09-02 | Outpatient (CLI) | payer MEDICAID, BC ==
[2023-09-02 08:06] VITALS: BP 107/75; PULSE 80; RESP 16; TEMP 98
--- NOTE | 2023-09-02 08:31 | P.HPOB ---
History of Present Illness H&P Date: 09/02/23 Chief Complaint: The patient is here for her routine gynecologic exam. This is a 53-year-old G2, P2 with an LMP of 04/08/2023. The patient states her menstrual periods were fairly regular prior to her LMP. Her is status post vasectomy. She has been having hot flashes mostly at night during the past year, but they have been less bothersome during the past 2 months. She is otherwise without gynecologic complaints. Review of Systems The patient has gained 8 pounds over the last year. She denies respiratory, cardiac, or G.I. problems. Past Medical History Past Medical History: No Reported History Additional Past Medical History / Comment(s): Right shoulder problems. 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 History of Any Multi-Drug Resistant Organisms: None Reported Past Surgical History: Hernia Repair Additional Past Surgical History / Comment(s): Ureteral reflux surgery of 1974. Past Psychological History: Anxiety Additional Psychological History / Comment(s): Anxiety not requiring medication at this time. Smoking Status: Never smoker Past Alcohol Use History: Occasional (0-5 drinks per week.) Past Drug Use History: None Reported Additional History: She has been since February 2023 and this is her second marriage. 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 - Past Family History Mother Family Medical History: Cancer Additional Family Medical History / Comment(s): Gilbert's disease. from Recurrent lung cancer. Also history of breast and adrenal colon cancer. Father Additional Family Medical History / Comment(s): Pulmonary hypertension. Paternal grandmother had colon cancer. Aunts and uncles have had heart disease. Daughter(s) Additional Family Medical History / Comment(s): Benign ovarian teratoma and uterine fibroid. Medications and Allergies Home Medications Medication Instructions Recorded Confirmed Type Ascorbic Acid [Vitamin C] 500 mg PO DAILY 05/03/20 08/20/22 History Ibuprofen [Motrin] 600 mg PO Q8HR PRN 05/03/20 08/20/22 History Cholecalciferol [Vitamin D3 (25 25 mcg PO DAILY 07/10/21 08/20/22 History Mcg = 1000 Iu)] Cyanocobalamin (Vitamin B-12) 1,000 mcg PO DAILY 07/10/21 08/20/22 History [Vitamin B-12] Allergies Allergy/AdvReac Type Severity Reaction Status Date / Time No Known Allergies Allergy Unverified 09/02/23 08:03 Exam Vital Signs Temp Pulse Resp BP Pulse Ox 09/02/23 08:04 98 F 80 16 107/75 97 Intake and Output 09/01/23 09/02/23 09/02/23 22:59 06:59 14:59 Other: Weight 88.451 kg Height 5 feet 5 inches, weight 195 pounds, BMI 32.4. This is a well-developed well-nourished white female who is alert and oriented times 3 in no acute distress. HEENT: Within normal limits. NECK: Supple without mass or thyromegaly. CHEST AND LUNGS: Clear to auscultation. HEART: Regular rate and rhythm. BREASTS: Are without mass or discharge. AXILLARY EXAM: Negative for adenopathy. BACK: Negative for CVA tenderness. ABDOMEN: Soft, nontender, without palpable masses. PELVIC EXAM: Normal external genitalia. Cervix and vagina appear normal. There is no unusual discharge. There is no evidence of prolapse. The uterus is midposition, nongravid size and nontender. There are no palpable adnexal masses or tenderness. RECTAL EXAM: Rectovaginal exam is negative for mass or tenderness and is negative for occult blood. EXTREMITIES: Nontender. IMPRESSION: 1. 53-year-old perimenopausal female whose is status post vasectomy with recent oligomenorrhea and vasomotor symptoms consistent with perimenopause. 2. Normal gynecologic exam. PLAN: 1. Pap smear was deferred since she had a negative Pap smear cotest on 07/10/2021. 2. Self breast awareness was discussed with the patient. We have also discussed symptoms associated with inflammatory breast cancer. 3. Screening mammogram will be due after 09/19/2022. The order slip was given to the patient for this. 4. Osteoporosis prevention was discussed. I have stressed the importance of adequate calcium, vitamin D and regular exercise. Recommended amounts of calcium and vitamin D were also discussed. 5. I have recommended colorectal cancer screening. She states she will get a PCP and I have recommended that she arrange colorectal cancer screening through the PCP. 6. She will continue to keep menstrual calendar and call if menstrual problems. 7. She was advised to return in one year for her annual well woman exam.
== END ==
LOC: WWCWWP 07:50
PROVIDERS: ATTEND Obstetrics & Gynecology
DX: Z00.00 Encounter for general adult medical examination without abnormal findings (principal); N91.5 Oligomenorrhea, unspecified; Z78.0 Asymptomatic menopausal state; Z80.3 Family history of malignant neoplasm of breast

== ENCOUNTER → 2023-10-02 | Outpatient (CLI) | payer MEDICAID, BC ==
--- NOTE | 2023-10-02 17:03 | MM ---
Reason for Exam: Screening (asymptomatic). Last screening mammogram was performed 12 month(s) ago. Patient History: Menarche at age 12. First Full-Term at age 25. Hormonal Contraceptives for 2 years from age 25 until age 27. Maternal grandmother had breast cancer, age 58. Mother had breast cancer, age 63. Last menstrual period: 09/18/2023 Risk Values: Nataly 5 year model risk: 2.2%. NCI Lifetime model risk: 16.1%. Prior Study Comparison: 06/02/2020 Bilateral Screening Mammogram, [facility]. 08/23/2021 Bilateral MG 3D screening mammo w/cad, [facility]. 09/19/2022 Bilateral MG 3D screening mammo w/cad, [facility]. Tissue Density: The breasts are heterogeneously dense, which may obscure small masses. Findings: Analyzed By CAD. The pattern is symmetrical. There are couple of benign calcifications within each breast. No suspicious groups of microcalcifications, spiculated or lobular masses, architectural distortion or other secondary signs of malignancy are mammographically apparent. Overall Assessment: Benign, BI-RAD 2 Management: Screening Mammogram of both breasts in 1 year. A negative mammogram report should not preclude additional follow up of suspicious palpable abnormalities. Patient should continue monthly self breast exam. A clinical breast exam by your physician is recommended on an annual basis and results should be correlated with mammographic findings. Note on Nataly scores and lifetime risk: 1. A Nataly score greater than 3% is considered moderate risk. If this is the case, consider specialist referral to assess eligibility for a risk reducing agent. 2. If overall lifetime risk for the development of breast cancer is 20% or higher, the patient may qualify for future screening with alternating mammogram and breast MRI. Electronically signed and approved by: Aureliano Causey D.O. Radiologis
== END | disposition home or self-care (01) ==
LOC: RADMAMWWP 16:34
PROVIDERS: ATTEND Obstetrics & Gynecology
DX: Z12.31 Encounter for screening mammogram for malignant neoplasm of breast (principal); Z80.3 Family history of malignant neoplasm of breast
CPT/HCPCS: 77063; 77067

== ENCOUNTER → 2024-10-05 | Outpatient (CLI) | payer BC ==
[2024-10-05 08:55] VITALS: BP 110/77; PULSE 80; RESP 16; TEMP 98.5
--- NOTE | 2024-10-05 09:18 | P.HPOB ---
History of Present Illness H&P Date: 10/05/24 Chief Complaint: The patient is here for her routine gynecologic exam. This is a 54-year-old G2, P2 with an LMP of 12/04/2023. The patient states her periods continue to spaced out. She does have occasional hot flashes but they seem to be improving. She is otherwise without gynecologic complaints. Review of Systems The patient's weight has been stable over the last year. She denies respiratory, cardiac, or G.I. problems. Past Medical History Past Medical History: No Reported History Additional Past Medical History / Comment(s): Right shoulder problems. 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 History of Any Multi-Drug Resistant Organisms: None Reported Past Surgical History: Hernia Repair Additional Past Surgical History / Comment(s): Ureteral reflux surgery of 1974. Past Psychological History: Anxiety Additional Psychological History / Comment(s): Anxiety not requiring medication at this time. Smoking Status: Never smoker Past Alcohol Use History: Occasional (0-5 drinks per week.) Past Drug Use History: None Reported Additional History: She has been since February 2023 and this is her second marriage. She works at [employer] in [place] d[employer]a [employer] at [facility]. - Past Family History Mother Family Medical History: Cancer Additional Family Medical History / Comment(s): Gilbert's disease. from Recurrent lung cancer. Also history of breast and adrenal colon cancer. Father Additional Family Medical History / Comment(s): Pulmonary hypertension. Paternal grandmother had colon cancer. Aunts and uncles have had heart disease. Daughter(s) Additional Family Medical History / Comment(s): Benign ovarian teratoma and uterine fibroid. Medications and Allergies Home Medications Medication Instructions Recorded Confirmed Type Ascorbic Acid [Vitamin C] 500 mg PO DAILY 05/03/20 10/05/24 History Ibuprofen [Motrin] 600 mg PO Q8HR PRN 05/03/20 10/05/24 History Cholecalciferol [Vitamin D3 (25 25 mcg PO DAILY 07/10/21 10/05/24 History Mcg = 1000 Iu)] Cyanocobalamin (Vitamin B-12) 1,000 mcg PO DAILY 07/10/21 10/05/24 History [Vitamin B-12] Allergies Allergy/AdvReac Type Severity Reaction Status Date / Time No Known Allergies Allergy Unverified 10/05/24 08:48 Exam Vital Signs Temp Pulse Resp BP Pulse Ox 10/05/24 08:50 98.5 F 80 16 110/77 98 Intake and Output 10/04/24 10/05/24 10/05/24 22:59 06:59 14:59 Other: Weight 88.904 kg Height 5 feet 5 inches, weight 196 pounds, BMI 32.6. This is a well-developed well-nourished white female who is alert and oriented times 3 in no acute distress. HEENT: Within normal limits. NECK: Supple without mass or thyromegaly. CHEST AND LUNGS: Clear to auscultation. HEART: Regular rate and rhythm. BREASTS: Are without mass or discharge. AXILLARY EXAM: Negative for adenopathy. BACK: Negative for CVA tenderness. ABDOMEN: Soft, nontender, without palpable masses. PELVIC EXAM: Normal external genitalia with minimal atrophy. Cervix and vagina appear normal with minimal atrophy. There is no unusual discharge. There is no evidence of prolapse. The uterus is midposition, nongravid size and nontender. There are no palpable adnexal masses or tenderness. RECTAL EXAM: Rectovaginal exam is negative for mass or tenderness and is negative for occult blood. EXTREMITIES: Nontender. IMPRESSION: 1. 54-year-old perimenopausal female with normal gynecologic exam. 2. Mild vasomotor symptoms. PLAN: 1. Pap smear was deferred since she had a negative Pap smear cotest on 07/10/2021. We will plan on repeating this next year. 2. Self breast awareness was discussed with the patient. We have also discussed symptoms associated with inflammatory breast cancer. 3. Screening mammogram is due and the order slip was given to the patient for this. 4. Osteoporosis prevention was discussed. I have stressed the importance of adequate calcium, vitamin D and regular exercise. Recommended amounts of calcium and vitamin D were also discussed. 5. If she continues to go without a menstrual period or vaginal bleeding for greater than 1 year after her LMP, she was instructed to call for any postmenopausal vaginal bleeding. 6. She was advised to return in one year for her annual well woman exam.
[2024-10-05 10:12] LABS: ALT 14 U/L (4-34); AST 21 U/L (14-36); African American GFR (CKD) >90 (>60 ml/min/1.73 sqM); Albumin 4.7 g/dL (3.5-5.0); Albumin/Globulin Ratio 1.8; Alkaline Phosphatase 98 U/L (38-126); Anion Gap 8 mmol/L; Blood Urea Nitrogen 15 mg/dL (7-17); Calcium 10.0 mg/dL (8.4-10.2); Carbon Dioxide 29 mmol/L (22-30); Chloride 104 mmol/L (98-107); Globulin 2.6 g/dL; Glucose 89 mg/dL (74-99); Non-African American GFR(CKD) 84 (>60 ml/min/1.73 sqM); Potassium 4.3 mmol/L (3.5-5.1); Sodium 141 mmol/L (137-145); Total Protein 7.3 g/dL (6.3-8.2)
[2024-10-05 15:54] LABS: Basophils # (A) 0.02 X 10*3/uL (0.00-0.10); Basophils % (A) 0.6 %; Eosinophils # (A) 0.07 X 10*3/uL (0.04-0.35); Eosinophils % (A) 2.0 %; HCT 46.3 % (37.2-46.3); HGB 14.9 g/dL (12.0-15.0); Immature Grans, Automated 0 %; Lymphocytes # (A) 1.36 X 10*3/uL (0.90-5.00); Lymphocytes % (A) 39.1 %; MCH 31.2 pg (27.0-32.0); MCHC 32.2 g/dL (32.0-37.0); MCV 96.9 FL (80.0-97.0); Monocytes # (A) 0.29 X 10*3/uL (0.20-1.00); Monocytes % (A) 8.3 %; NRBC Per 100 WBC 0 X 10*3/uL (0.00-0.01); Neutrophils # (A) 1.74 X 10*3/uL (1.80-7.70); Neutrophils % (A) 50.0 %; Platelet Count 275 X 10*3/uL (140-440); RBC 4.78 X 10*6/uL (4.10-5.20); RDW 12.5 % (11.5-14.5); WBC 3.48 X 10*3/uL (4.50-10.00)
[2024-10-05 16:04] LABS: Cholesterol 217.00 mg/dL (0.00-200.00); HDL Cholesterol 60.90 mg/dL (40.00-60.00); LDL Cholesterol,Calculated 143.7 mg/dL (0.0-131.0); Triglycerides 62.10 mg/dL (0.00-149.00); VLDL Calculation 12.42 mg/dL (5.00-40.00)
== END ==
LOC: WWCWWP 08:25
PROVIDERS: ATTEND Obstetrics & Gynecology
DX: Z01.419 Encounter for gynecological examination (general) (routine) without abnormal findings (principal); N95.9 Unspecified menopausal and perimenopausal disorder; Z78.0 Asymptomatic menopausal state
CPT/HCPCS: 80053; 80061; 82306; 84443; 85025; 86803

== ENCOUNTER → 2024-10-11 | Outpatient (CLI) | payer BC ==
--- NOTE | 2024-10-11 17:52 | MM ---
Reason for Exam: Screening (asymptomatic). Last screening mammogram was performed 12 month(s) ago. Patient History: Menarche at age 12. First Full-Term at age 25. Hormonal Contraceptives for 2 years from age 25 until age 27. Maternal grandmother had breast cancer, age 58. Mother had breast cancer, age 63. Last menstrual period: 12/04/2023 Risk Values: Natayl 5 year model risk: 2.2%. NCI Lifetime model risk: 15.8%. Prior Study Comparison: 08/23/2021 Bilateral MG 3D screening mammo w/cad, [facility]. 09/19/2022 Bilateral MG 3D screening mammo w/cad, [facility]. 10/02/2023 Bilateral MG 3D screening mammo w/cad, [facility]. Tissue Density: The breasts are heterogeneously dense, which may obscure small masses. Findings: Analyzed By CAD. There is no suspicious group of microcalcifications or new suspicious mass in either breast. Overall Assessment: Negative, BI-RAD 1 Management: Screening Mammogram of both breasts in 1 year. . Patient should continue monthly self-breast exams. A clinical breast exam by your physician is recommended on an annual basis. This exam should not preclude additional follow-up of suspicious palpable abnormalities. Note on Nataly scores and lifetime risk: 1. A Nataly score greater than 3% is considered moderate risk. If this is the case, consider specialist referral to assess eligibility for a risk reducing agent. 2. If overall lifetime risk for the development of breast cancer is 20% or higher, the patient may qualify for future screening with alternating mammogram and breast MRI. [facility], , 10/11/2024 5:49 PM. Electronically signed and approved by: Shorty Salinas M.D. Radiologist
== END | disposition home or self-care (01) ==
LOC: RADMAMWWP 09:44
PROVIDERS: ATTEND Obstetrics & Gynecology
DX: Z12.31 Encounter for screening mammogram for malignant neoplasm of breast (principal); R92.333 Mammographic heterogeneous density, bilateral breasts; Z80.3 Family history of malignant neoplasm of breast; Z92.0 Personal history of contraception
CPT/HCPCS: 77063; 77067